=== PATIENT | male | born 1980 | race Caucasian/White ===

== ENCOUNTER 2024-03-14 14:26 | Emergency (ER) | payer BC, SELFPAY ==
[2024-03-14 14:34] VITALS: BP 152/97; PULSE 94; RESP 20; TEMP 36.1; O2SAT 99
--- NOTE | 2024-03-14 15:05 | ED.GENADULT ---
HPI - General Adult General Chief complaint: Extremity Injury, Lower Stated complaint: Pain in butt/can't hardley walk Time Seen by Provider: 03/14/24 15:06 Source: patient, RN notes reviewed and old records reviewed Mode of arrival: ambulatory Limitations: no limitations History of Present Illness HPI narrative: 43-year-old male presents to the [facility] with complaints of increasing lower back, right buttock pain patient states that it started on Sunday, was evaluated at [facility] in [place]. Patient was prescribed per medical record Flexeril, prednisone and tramadol, states that the medications are making him symptoms worse. Patient reports his symptoms got worse today. Patient is walking with a shuffling gait. Tenderness to the lower lumbar, S right SI joint. States he feels like he swollen within the lower back and buttock area. No erythema, swelling or ecchymosis noted. Denies any injury to the area. Related Data Home Medications ?Medication ?Instructions ?Recorded ?Confirmed ?Last Taken ?Type cyclobenzaprine 5 mg tablet mg 03/14/24 Unknown History prednisone 20 mg tablet mg 03/14/24 Unknown History tramadol 50 mg tablet mg 03/14/24 Unknown History Allergies Allergy/AdvReac Type Severity Reaction Status Date / Time codeine Allergy Mild Rash Verified 03/14/24 14:53 No Known Drug Allergies Allergy Unknown Unknown Verified 03/14/24 14:53 poison gurwinder extract Allergy Unknown Rash Verified 03/14/24 14:53 Review of Systems Review of Systems: All systems reviewed & are unremarkable except as noted in HPI and below Constitutional: Constitutional: Reports no additional constitutional complaints ENT: Reports system reviewed and no additional complaints, except as documented Cardiovascular: Cardiovascular: Reports no additional cardiovascular complaints, Denies chest pain and Denies dyspnea Respiratory: Respiratory: Reports no additional respiratory complaints, Denies chest congestion, Denies cough and Denies dyspnea Musculoskeletal: Musculoskeletal: Reports as per HPI and Reports back pain Integumentary/Breasts: Skin/Breast: Reports system reviewed and no additional complaints, except as docu PMFSH Family History Family History Mother Hypertension Sibling Hypertension Father Carcinoma of colon Malignant neoplasm of prostate Social History Social History Smoking status: Never smoker Alcohol intake: current Comments At the time of my signature, I reviewed and agree with the nursing past medical, surgical, social, and family history. There is no relevant family history pertinent to the patient complaint. Exam Const: General: cooperative, healthy appearing, well developed, alert, in distress moderate (pain), tired appearing, uncomfortable and well nourished Nutritional Appearance: well nourished Orientation/consciousness: patient oriented x3 Limitations: no limitations HENMT: Head: normal to inspection Face and sinus: normal facial exam and face symmetric Eyes: General: appearance normal, both eyes and all related structures Neck: Neck: normal visual inspection, full ROM, no lymphadenopathy and no meningeal signs Chest: Chest palpation & inspection: normal inspection of the chest Resp: Effort & Inspection: normal respiratory effort and able to speak in complete sentences Cardio: Rate: regular rate GI: GI Palp: No abdominal tenderness Back/Spine/Pelvis: Back: No sacral edema and back tenderness Cervical Spine: normal cervical lordosis, cervical ROM normal and No Cervical spine tenderness Thoracic/Lumbar Spine: paraspinal muscle tenderness on the right in the lower lumbar, No thoracic spinal tenderness and lumbar spinal tenderness at L4 and at L5 Pelvis: no buttock ecchymosis, buttock tenderness on the right, no buttock swelling and sciatic notch tenderness on the right Sacroiliac joints: on the right tender to palpation Sacrum: no swelling, tenderness and No sacral edema Coccyx: no swelling Other: Well seated patient unable to lift thighs up. Reports significant pain and weakness. Skin: General skin exam: normal color and no rashes or lesions noted Neuro: General: patient oriented x3, No gait normal, moves all extremities and no meningeal signs Cognition (Neuro): normal cognition Speech: normal speech Gait exam (Neuro): Shuffling gait present and Assisted gait required walker Motor exam (neuro): Abnormal motor strength present (Bilateral leg generalized weakness, trouble standing) Extrem: General: capillary refill normal and abnormal gait Psych: Appearance: grossly normal and well kempt Mental Status: mental status grossly normal Speech and movement: Normal speech and movement present and Clear speech present Affect: normal affect Attitude: cooperative Course Course Level of Care: Express Care Visit Vital Signs Vital signs: Vital Signs Temperature 97 F L 03/14/24 14:34 Pulse Rate 94 03/14/24 14:34 Respiratory Rate 20 03/14/24 14:34 Blood Pressure 152/97 H 03/14/24 14:34 Pulse Oximetry 99 03/14/24 14:34 Oxygen Delivery Room Air 03/14/24 14:34 Temperature 97 F L 03/14/24 14:34 Pulse Rate 94 03/14/24 14:34 Respiratory Rate 20 03/14/24 14:34 Blood Pressure 152/97 H 03/14/24 14:34 Pulse Oximetry 99 03/14/24 14:34 Oxygen Delivery Room Air 03/14/24 14:34 Reviewed Transfer Transfered to: [facility] (Per patient request) Transportation: Other (POV, states that his girlfriend will drive him, declined EMS) Transfer rationale: Patient with lower extremity weakness, shuffling gait, significant pain to the lower back sending for higher level of care Patient was treated at another facility, [facility], states treatment made symptoms worse Accepting physician: Spoke with Rochelle GALARZA, Dr. Ford Medical Decision Making MDM Narrative Medical decision making narrative: Patient sitting comfortably in exam room. Nontoxic, vitals stable. Patient in no acute distress Patient presents for low back pain, bilateral leg weakness, worse on the right than the left Was seen at an ER, states that symptoms got worse with muscle relaxer, steroid and pain medication Sending to rule out acute back issues versus, cauda equina. EMS offered, patient declined stating that he will have his girlfriend take him. Transfer instructions reviewed with patient to go directly to the emergency room. EMS offered, patient declined All questions have been answered, and the patient deny any further questions. Some parts of this dictation were generated by voice recognition software and may contain typographical and/or grammatical inaccuracies. Differential Diagnosis Differential Diagnosis: Muscle strain, sciatica, cauda equina, abscess spinal Medical Records Medical records reviewed: Yes I reviewed the external patient's medical records. Vital Signs Vital Signs: Vital Signs Temperature 97 F L 03/14/24 14:34 Pulse Rate 94 03/14/24 14:34 Respiratory Rate 20 03/14/24 14:34 Blood Pressure 152/97 H 03/14/24 14:34 Pulse Oximetry 99 03/14/24 14:34 Oxygen Delivery Room Air 03/14/24 14:34 Temperature 97 F L 03/14/24 14:34 Pulse Rate 94 03/14/24 14:34 Respiratory Rate 20 03/14/24 14:34 Blood Pressure 152/97 H 03/14/24 14:34 Pulse Oximetry 99 03/14/24 14:34 Oxygen Delivery Room Air 03/14/24 14:34 Reviewed Lab Data Lab results reviewed: Yes I reviewed the patient's lab results. Labs: Reviewed Critical Care Time Critical Care Time Critical Care Time: No Discharge Plan Discharge Clinical Impression: Back pain Qualifiers: Back pain location: low back pain Chronicity: acute Back pain laterality: right Sciatica presence: with sciatica Sciatica laterality: sciatica of right side Qualified Code(s): M54.41 - Lumbago with sciatica, right side Patient Disposition: Acute Care Hospital Condition: Guarded Prognosis Patient Language: Vietnamese Prescriptions: No Action prednisone 20 mg tablet tramadol 50 mg tablet cyclobenzaprine 5 mg tablet Follow-up/Referrals: PHYSICIAN,[employer]IC[facility] HELPER [Primary Care Provider] - Time of Disposition: 15:28
== END 2024-03-14 15:21 | disposition short-term general hospital (02) ==
PROVIDERS: Emergency Provider Nurse Practitioner
DX: M54.41 Lumbago with sciatica, right side (principal)
CPT/HCPCS: 99211; G0463